=== PATIENT | female | born 1965 ===

== ENCOUNTER 2018-09-14 12:02 | Outpatient (CLI) | payer OTHER ==
--- NOTE | 2018-09-14 12:54 | MMO ---
Bilateral MAMMO Bilat Screen [facility]. CLINICAL HISTORY: Patient is 53 years old and is seen for screening. The patient has no family history of breast cancer. The patient has no personal history of cancer. VIEWS: The views performed were: bilateral craniocaudal; bilateral craniocaudal with tomosynthesis; bilateral mediolateral oblique with tomosynthesis; and right mediolateral oblique. MAMMOGRAM FINDINGS: There are scattered fibroglandular densities. Finding 1: There are benign appearing calcifications seen in both breasts. Finding 2: There are benign appearing densities seen in both breasts. There are no suspicious masses, suspicious calcifications, or new areas of architectural distortion. IMPRESSION: THERE IS NO MAMMOGRAPHIC EVIDENCE OF MALIGNANCY. A ROUTINE FOLLOW-UP MAMMOGRAM IN 1 YEAR IS RECOMMENDED. THE RESULTS OF THIS EXAM WERE SENT TO THE PATIENT. ACR BI-RADS Category 2 - Benign finding MAMMOGRAPHY NOTE: 1. A negative mammogram report should not delay a biopsy if a dominant of clinically suspicious mass is present. 2. Approximately 10% to 15% of breast cancers are not detected by mammography. 3. Adenosis and dense breasts may obscure an underlying neoplasm.
== END 2018-09-14 12:03 | disposition home or self-care (01) ==
LOC: BICMAMMO 12:02
PROVIDERS: ATTEND Family Medicine
DX: Z12.31 Encounter for screening mammogram for malignant neoplasm of breast (principal)
CPT/HCPCS: 77063; 77067

== ENCOUNTER 2018-10-18 06:57 | Outpatient (CLI) | payer OTHER ==
--- NOTE | 2018-10-18 08:32 | ULT ---
Ultrasound thyroid: DATE: 10/18/2018 HISTORY: 53-year-old female with thyromegaly. COMPARISON: None FINDINGS: Isthmus: 1.4 cm AP Right lobe: 5.9 x 2.7 x 2.9 cm Left lobe: 6.4 x 3.3 x 4.3 cm There are multiple bilateral thyroid nodules with heterogeneous echogenicity. Centered at right midpole: 3.2 x 2.3 x 2.2 cm solid nodule. Composition: Solid: 2 points Echogenicity: Isoechoic: 1 point. Shape: Wider than tall: 0 point Margins: Smooth: 0 point Echogenic foci: None: 0 point Total points: 3 TIRADS category 3-mildly suspicious. Recommendation for TIRADS category 3 lesions: Fine-needle aspiration if greater than 2.5 cm. Follow-u p if greater than than 1.5 cm. Left upper pole: 3.6 x 1.8 x 2.5 cm mixed solid and cystic nodule: Composition: Mixed solid and cystic: 1. Point Echogenicity: Hypoechoic solid component: 2 points Shape: Wider than tall: 0 point Margins: Smooth: 0 point Echogenic foci: None: 0 point Total points: 3 TIRADS category 3-mildly suspicious. Recommendation for TIRADS category 3 lesions: Fine-needle aspiration if greater than 2.5 cm. Follow-u p if greater than than 1.5 cm. Left upper-mid pole medially: 2.3 x 1.7 x 2.2 cm solid nodule. Composition: Solid: 2 points Echogenicity: Isoechoic: 1 point. Shape: Wider than tall: 0 point Margins: Smooth: 0 point Echogenic foci: None: 0 point Total points: 3 TIRADS category 3-mildly suspicious. Recommendation for TIRADS category 3 lesions: Fine-needle aspiration if greater than 2.5 cm. Follow-u p if greater than than 1.5 cm. Left lower mid pole: 2.9 x 2.9 x 2.8 cm solid nodule. Composition: Solid: 2 points Echogenicity: Isoechoic: 1 point. Shape: Taller than wide: 3 point Margins: Smooth: 0 point Echogenic foci: None: 0 point Total points: 6 TIRADS category 4: Moderately suspicious. Recommendation for TIRADS category 4 lesions: Fine-needle aspiration of greater than or equal to 1.5 cm. Follow-up if greater than 1 cm. Isthmus: 1.4 x 1.4 cm Solid nodule Composition: solid : 1 Point Echogenicity: Hypoechoic : 2 points Shape:Taller than wide: 3 point Margins: Smooth: 0 point Echogenic foci: None: 0 point Total points: 6 Total points: 6 TIRADS category 4: Moderately suspicious. Recommendation for TIRADS category 4 lesions: Fine-needle aspiration of greater than or equal to 1.5 cm. Follow-up if greater than 1 cm. IMPRESSION: 1. Multinodular goiter. 2. There are at least 2 TIRADS category 4 lesions and at least 3 TIRADS category 3 lesions. 3. Recommend ultrasound-guided fine-needle aspiration for the 2.9 x 2.9 x 2.8 cm TIRADS category 4 le kyleigh at the left lower midpole. 4. Recommend serial follow-up ultrasounds for the rest of the thyroid nodules (at 1, 2, 3, and 5 year s).
== END 2018-10-18 06:58 | disposition home or self-care (01) ==
LOC: BICULT 06:57
PROVIDERS: ATTEND Family Medicine
DX: E01.0 Iodine-deficiency related diffuse (endemic) goiter (principal); E04.2 Nontoxic multinodular goiter; E07.89 Other specified disorders of thyroid
CPT/HCPCS: 76536